=== PATIENT | male | born 1980 | race Caucasian/White ===

== ENCOUNTER 2016-09-06 23:22 | Emergency (ER) | payer BC, MEDICAID ==
[~2016-09-06] VITALS: Ht 175.3 cm; Wt 90.3 kg
[~2016-09-06 23:22] MED LIST: GABA300C PO; MIRT30TA7 PO
--- NOTE | 2016-09-06 23:37 | NUR ---
36 YO MALE BB RA FROM HOME. PT IS ALERT X 3, C/O FEELING WEAK, CALLED 911. PT ASSISTED TO ER BED, SKIN WARM AND DRY, RR EVEN AND UNLABORED. PT GOWNED, PLACED ON MACHINE ROUGH ROUNDER. AWAITING ORDERS FROM PROPVIDER, WILL CONITNUE TO MONITOR
--- NOTE | 2016-09-06 23:38 | NUR ---
20G RIGHT AC IV STARTED, BLOOD SAMLPE OBTAINED AND SENT TO LAB
[2016-09-06] MEDS ORDERED: IV SET PRIMARY 1 EA INFUS.SET MC ONE (23:57)
[2016-09-06] MEDS ORDERED: IV NS 0.9% 1,000 ML ONE (23:57)
[2016-09-06] MEDS ORDERED: ONDANSETRON HCL/PF 4 MG/2 ML VIAL ONE (23:57)
[2016-09-07] MEDS ORDERED: IV NS 0.9% 1,000 ML BAG IV ONE
[2016-09-07] MEDS ORDERED: ONDANSETRON HCL/PF 4 MG/2 ML VIAL IVP ONE
[2016-09-07 00:05] LABS: BASOPHILS # (AUTO) 0.1 /CMM (0.0-0.2); BASOPHILS % (AUTO) 0.9 % (0.0-2.0); EOSINOPHILS # (AUTO) 0.1 /CMM (0.0-0.7); EOSINOPHILS % (AUTO) 1.5 % (0.0-6.0); HEMATOCRIT 38 % (39-51); HEMOGLOBIN 12.8 g/dL (13.5-17.5); LYMPHOCYTES # (AUTO) 4.3 /CMM (0.8-4.8); LYMPHOCYTES % (AUTO) 58.9 % (20.0-44.0); MEAN CORPUSCULAR HEMOGLOBIN 30 PG (26.0-33.0); MEAN CORPUSCULAR HGB CONC 34 g/dl (31.0-36.0); MEAN CORPUSCULAR VOLUME 89 fL (80-96); MONOCYTES # (AUTO) 0.5 /CMM (0.1-1.30); MONOCYTES % (AUTO) 7.4 % (2.0-12.0); NEUTROPHILS # (AUTO) 2.3 /CMM (1.8-8.9); NEUTROPHILS % (AUTO) 31.3 % (43.0-81.0); PLATELET COUNT (AUTO) 327 /CMM (150-450); RDW COEFFICIENT OF VARIATION 13.2 (11.5-15.0); RED BLOOD CELL COUNT(AUTO) 4.24 MIL/uL (4.5-6.0); WHITE BLOOD COUNT (AUTO) 7.3 K/uL (4.3-11.0)
--- NOTE | 2016-09-07 00:08 | NUR ---
MEDICATED PT ORDERED
[2016-09-07 00:21] LABS: CALCIUM, SERUM 8.8 mg/dL (8.5-10.1); CARBON DIOXIDE 29 mmol/L (21-32); CHLORIDE 100 mmol/L (98-107); CREATININE 1.4 mg/dL (0.6-1.3); GFR 58 mL/min (>60); GLUCOSE 103 mg/dL (74-106); POTASSIUM 3.5 mmol/L (3.5-5.1); SODIUM SERUM 134 mmol/L (136-145); UREA NITROGEN, BLOOD 15 mg/dL (7-18)
[2016-09-07 00:26] LABS: ALANINE AMINOTRANSFERASE 26 U/L (12-78); ALBUMIN 3.9 g/dL (3.4-5.0); ALKALINE PHOSPHATASE 68 U/L (46-116); ASPARTATE AMINOTRANSFERASE 17 U/L (15-37); BILIRUBIN,DIRECT 0.1 mg/dL (0.0-0.2); BILIRUBIN,TOTAL 0.4 mg/dL (0.2-1.0); TOTAL PROTEIN, SERUM 7.6 g/dL (6.4-8.2)
[2016-09-07 00:29] LABS: TROPONIN I < 0.017 ng/mL (0.00-0.056)
[2016-09-07 00:55] VITALS: BP 120/78
--- NOTE | 2016-09-07 00:56 | NUR ---
Patient discharged to home in stable condition. Written and verbal after care instructions given. Patient verbalizes understanding of instruction.IV removed. Catheter intact and site benign. Pressure and 4x4 applied to site. No bleeding noted. PT ambulatory with a steady gait VITAL SIGNS WITHIN NORMAL LIMITS.
== END 2016-09-07 00:57 | disposition home or self-care (01) ==
LOC: ER 23:23
DX: R55 Syncope and collapse (principal); Z71.6 Tobacco abuse counseling; F41.9 Anxiety disorder, unspecified; F32.9 Major depressive disorder, single episode, unspecified; F17.200 Nicotine dependence, unspecified, uncomplicated
CPT/HCPCS: 36415; 71010-TC; 80048-TC; 80076-TC; 82962-TC; 84484-TC; 85025-TC; A4606; J2405; J7030; Z7610

== ENCOUNTER 2017-12-18 07:55 | Emergency (ER) | payer MEDICAID ==
[~2017-12-18] VITALS: Ht 172.7 cm; Wt 81.6 kg
[2017-12-18] MEDS ORDERED: LEVETIRACETAM 500 MG TABLET (08:02)
[2017-12-18] MEDS ORDERED: LORAZEPAM TAB 0.5MG (08:02)
--- NOTE | 2017-12-18 08:05 | NUR ---
AAOX3, CAME TO ER C/O RECURRING SEIZURE X 4 DAYS, TAKING KEPPRA 500MG BID. PLACED ON SEIZURE PRECAUTION. RR IS EVEN AND UNLABORED WITH NAD NOTED. AWAITING MD FOR EVAL.
--- NOTE | 2017-12-18 09:12 | NUR ---
NO NEW SEIZURE NOTED. PT STATES FEELING MUCH BETTER. "I THINK MY MEDICATION IS KICKING IN." D/C HOME IN STABLE CONDITION.
[2017-12-18 09:13] VITALS: BP 132/86
== END 2017-12-18 09:14 | disposition home or self-care (01) ==
LOC: ER 07:56
DX: R56.9 Unspecified convulsions (principal); F41.9 Anxiety disorder, unspecified; F32.9 Major depressive disorder, single episode, unspecified; F90.9 Attention-deficit hyperactivity disorder, unspecified type; Z79.899 Other long term (current) drug therapy
CPT/HCPCS: 99283; A4606; Z7610